=== PATIENT | male | born 1955 | race Caucasian/White ===

== ENCOUNTER 2024-04-23 11:38 | Emergency (ER) | payer BC, SELFPAY ==
[2024-04-23 11:38] VITALS: BMI 38.2
[2024-04-23 11:45] VITALS: BP 149/81
[2024-04-23 12:01] VITALS: BP 172/85
--- NOTE | 2024-04-23 12:18 | ED.GENMED ---
History of Present Illness
General
Chief Complaint: Cough
Source: patient
Exam Limitations: none
Time Seen by Provider: 04/23/24 12:05
Nursing documentation reviewed up to this point in time: agreed with
History of Present Illness
History of Present Illness:
Patient is a 5-year-old male with history of carotid ectomy, stroke on baby aspirin, hypertension hyperlipidemia who presents to urgent care. Patient went to urgent care because over the past 10 days he has had a lot of nasal congestion and has had
blood from his nose when he blows his nose. He reports he sees blood with mixed with mucus when he blows his nose just drips out. At times he does cough up blood. He does report he sleeps with a CPAP machine at night and this happens worse at
night while wearing the machine.
He denies any associated fevers. He denies any shortness of breath.
He had a chest x-ray urgent care and was sent here to rule out congestive heart failure. Patient reports he is no history of heart failure. He denies any associated chest pain. He denies any shortness of breath. he denies any lower extremity
swellings. He is followed by customer solutions supervisor and has a loop recorder. His customer solutions supervisor is at [facility].
Review of Systems
Review of Systems
Allergies reviewed?: Yes
All Other Systems: ROS reviewed and negative except as documented in HPI and ROS
Constitutional: Reports no symptoms
EENT: Reports other (blood in mucus of nose when blowing )
Respiratory: Reports cough and hemoptysis
Cardiac: Reports no symptoms
ABD/GI: Reports no symptoms
Musculoskeletal: Reports no symptoms
Skin: Reports no symptoms
Neurological: Reports no symptoms
Psychiatric: Reports no symptoms
Phy Exam
General Physical Exam
General Presentation: no apparent distress
General age: appears stated age
General Skin: warm and dry
General Habitus: normal
General Mental: alert
General Hydration: appears well hydrated
ENT Exam
ENT Exam: EOMI, neck supple and other (Bilateral nares appears irritated and red however no obvious blood noted)
Cardiovascular Exam
Cardiovascular Exam: regular rate/rhythm, no murmur and normal peripheral pulses
Pulmonary Exam
Pulmonary Exam: lungs clear and no respiratory distress
Neurological Exam
Neurological Exam: alert and oriented x3
Musculoskeletal Exam
Musculoskeletal Exam: full ROM
Skin Exam
Skin Exam: normal color and warm/dry
Psychiatric Exam
Psychiatric Exam: normal mood/affect
Course
Orders/Labs/Results
Orders:
Orders
04/23/24 11:39
Electrocardiogram (*1) Urgent
Reason for Study: Other
Other Reason for Exam: coughing
EKG- Treatment ONCE
04/23/24 12:18
Cardiac Monitoring- Treatment ONCE
IV Insert/Care/Rem.- Treatment PRN
04/23/24 12:19
Electrocardiogram (*1) Stat
Reason for Study: Other
Other Reason for Exam: chest pain
EKG- Treatment ONCE
CR Chest - 2 Views Urgent
Comment:
Reason For Exam: cough
04/23/24 12:21
Complete Blood Count/With Diff Urgent
Comprehensive Metabolic Panel Urgent
NT-proBNP Urgent
Troponin I Urgent
Abnormal Lab Results
04/23/24
12:21
MPV 11.3 H fL
(7.4-10.4)
Abs Immat Gran (auto) 0.1 H 10^3/uL
(0-0.05)
Immature Gran % 0.8 H %
(0-0.5)
Glucose 101 H mg/dl
(70-99)
04/23/24 12:21
04/23/24 12:21
Vital Signs
Initial and Last Documented VS:
Initial Vital Signs
Temp Pulse Resp BP Pulse Ox
97.6 F 78 18 149/81 95
04/23/24 11:45 04/23/24 11:45 04/23/24 11:45 04/23/24 11:45 04/23/24 11:45
Last Documented Vital Signs
Temp Pulse Resp BP Pulse Ox
97.6 F 61 13 168/81 97
04/23/24 11:45 04/23/24 14:00 04/23/24 14:00 04/23/24 14:00 04/23/24 14:00
[employer] consulted with Physician
[employer] consulted with physician?: Yes
Name of Physician Consulted: Lena
MDM/Problems Addressed
Differential Diagnosis Includes:
Not limited to viral syndrome, epistaxis,
MDM/Problems Addressed:
As documented patient is a 5-year-old male with no history of heart failure sent by urgent care for possible heart failure. Patient has been blowing his nose and noticing blood and coughing up some blood. He has been congested over the past 10
days and reports this blood occurs while wearing his CPAP machine mostly at night although it does happen during the day. He has no complaints of shortness of breath no chest pain his lungs are clear he has no lower extremity swelling there is no
evidence of heart failure clinically and there is no evidence of heart failure with patient's labs. His cardiac troponin is negative his x-ray is negative this is likely from dry air likely related to the CPAP machine. He denies any recent fever
or chills. He does not feel weak. He is very well-appearing.
Within normal workup patient stable for discharge home. I did recommend he speak with his journeyman meat cutter regarding his CPAP machine and dry air
Case discussed ED physician he is stable for discharge home.
*Radiology
Radiology exam reviewed: radiology read reviewed
*Pulse Oximetry
Patient hypoxic: no
*EKG
Interpreted by ED Provider?: Yes
Interpretation: normal
Comparison EKG: no comparison EKG present
Heart Rate: 70
Rate: normal
Rhythm: sinus
Ischemia: no ischemia
*Critical Care Note
Total Time (30-74mins, 75-104mins- exclusive of procedures): Not Applicable
ED Attending Note
-
Portions of this chart may have been created with voice recognition software.� Occasional wrong word or��sound alike� substitutions may have occurred due to the inherent limitations of voice recognition software.
Discharge Plan
Departure
Patient Disposition: Home (Routine Discharge)
Date of Disposition: 04/23/24
Time of Disposition: 14:26
Patient with high blood pressure during this ER visit?: Yes
Condition: Fair
Covid-19: Not Applicable
Discharge Problem:
Epistaxis
Instructions: Nosebleeds ED
Referrals:
Kar Gonzalez, DO [Family Provider] -
Activity Restrictions/Additional Instructions:
As discussed your blood work and chest x-ray were unremarkable here in the ER.
Please speak with your journeyman meat cutter regarding the dry air from your CPAP machine.
You may apply small amount of Vaseline to the nose throughout the day for moisture
Return if any worsening of symptoms
Interventions
Interventions:
*Risk Screen - Suicide Last Done: 04/23/24 11:45
*General Assessment Last Done: 04/23/24 11:45
*Neglect/Abuse Screening Last Done: 04/23/24 11:45
ED- Fall Risk Assessment Last Done: 04/23/24 12:09
ED- Pulmonary Assessment Last Done: 04/23/24 12:09
Discharge Date and Time
Print Language: MARTINIQUAIS
[2024-04-23 12:30] VITALS: BP 164/93
[2024-04-23 12:30] LABS: % Basophils 0.7 % (0-2); % Eosinophils 1.6 % (0-6); % Immature Granulocytes 0.8 % (0-0.5); % Lymphocytes 22.8 % (20.5-51.1); % Monocytes 8.6 % (1.7-9.3); % Neutrophils 65.5 % (42.2-75.2); Absolute Eosinophils 0.1 10^3/uL (0-0.7); Absolute Immature Granulocytes 0.1 10^3/uL (0-0.05); Absolute Lymphocytes 1.4 10^3/uL (1.2-3.4); Absolute Monocytes 0.5 10^3/uL (0.1-0.6); Hematocrit 44.5 % (39.0-52.0); Hemoglobin 15.4 g/dL (13.0-18.0); Mean Corp Hgb Conc. 34.6 g/dL (33.0-37.0); Mean Corpuscular Hgb 30.9 pg (27.0-31.0); Mean Corpuscular Volume 89.4 fL (80.0-94.0); Mean Platelet Volume 11.3 fL (7.4-10.4); Nucleated Red Blood Cells % 0 % (-); Platelet Count 214 10^3/uL (130-400); Red Blood Cell Count 4.98 10^6/uL (4.70-6.10); Red Cell Dist. Width 12.3 % (11.5-14.5); White Blood Cell Count 6.1 10^3/uL (4.8-10.8)
[2024-04-23 12:45] LABS: ALT (SGPT) 20 U/L (0-50); AST (SGOT) 18 U/L (17-59); Albumin 4.7 g/dl (3.5-5.0); Alkaline Phosphatase 68 U/L (38-126); Blood Urea Nitrogen 14 mg/dl (9-20); Calcium 9.4 mg/dl (8.4-10.2); Carbon Dioxide 29 mmol/L (22-30); Chloride 102 mmol/L (98-107); Estimated Creatinine Clearance 92 ml/min; Glucose 101 mg/dl (70-99); Potassium 3.9 mmol/L (3.5-5.1); Sodium 139 mmol/L (135-145); Total Bilirubin 1.2 mg/dl (0.2-1.3); eGFR > 60.00
[2024-04-23 12:52] LABS: NT-proBNP < 20.0 pg/ml; Troponin I < 0.012 ng/ml
[2024-04-23 13:30] VITALS: BP 150/84
[2024-04-23 14:00] VITALS: BP 168/81
== END 2024-04-23 15:40 | disposition home or self-care (01) ==
LOC: EMR 11:38
PROVIDERS: Nurse Practitioner; EMERGENCY PHYSICIAN Emergency Medicine; FAMILY PHYSICIAN Family Medicine
DX: R04.0 Epistaxis (principal); I10 Essential (primary) hypertension; E78.5 Hyperlipidemia, unspecified; Z86.73 Personal history of transient ischemic attack (TIA), and cerebral infarction without residual deficits; Z79.82 Long term (current) use of aspirin
CPT/HCPCS: 99285; 71046; 80053; 83880; 84484; 85025; 93005

== ENCOUNTER → 2025-02-17 14:54 | Outpatient (REF) | payer OTHER, SELFPAY | LOC: HWRAD 14:54 | PROVIDERS: ATTENDING PHYSICIAN Urology; FAMILY PHYSICIAN Family Medicine | DX: N20.0 Calculus of kidney (principal) | CPT/HCPCS: 76775 ==